=== PATIENT | female | born 1970 | race Caucasian/White ===

== ENCOUNTER 2025-04-03 09:01 | Emergency (ER) | payer MEDICARE, BC ==
[2025-04-03] MEDS ORDERED: Naloxone 0.4 MG/ML SDV IVPUSH PRN (09:21)
[2025-04-03 09:31] LABS: BASOPHILS PERCENT AUTO 0.2 % (0.0-1.0); EOSINOPHILS ABSOLUTE AUTO 0.2 K/mm3 (0.0-0.4); EOSINOPHILS PERCENT AUTO 1.8 % (0.0-6.0); HEMATOCRIT 35.7 % (37.0-47.0); HEMOGLOBIN 12.2 gm/dl (12.0-16.0); IMMATURE GRAN ABSOLUTE AUTO 0.05 K/mm3 (0.00-0.05); IMMATURE GRAN PERCENT AUTO 0.5 % (0.0-0.4); LYMPHOCYTES PERCENT AUTO 10.6 % (24.0-44.0); MEAN CORPUSCULAR HEMOGLOBIN 30.5 pg (28.0-32.0); MEAN CORPUSCULAR HGB CONC 34.2 g/dl (32.0-36.0); MEAN CORPUSCULAR VOLUME 89.3 fl (83.0-99.0); MEAN PLATELET VOLUME 8.6 fl (9.4-12.3); MONOCYTES ABSOLUTE AUTO 1.1 K/mm3 (0.0-0.8); MONOCYTES PERCENT AUTO 11.3 % (0.0-8.0); NEUTROPHILS ABSOLUTE AUTO 7.3 K/mm3 (1.8-7.7); NEUTROPHILS PERCENT AUTO 75.6 % (41.0-71.0); PLATELET COUNT,PLT 306 K/mm3 (150-400); WHITE BLOOD CELL COUNT,WBC 9.59 K/mm3 (3.9-11.3)
[2025-04-03] MEDS: Sodium Chloride 0.9% 1,000 ML IV SCH (09:31)
[2025-04-03] MEDS: Ondansetron 4 MG/2 ML SDV IVPUSH ONE ×2 (09:31→09:32)
[2025-04-03] MEDS: HYDROmorphone 1 MG/ML Syringe IVPUSH ONE (09:32)
[2025-04-03 09:48] LABS: APPEARANCE,URINE CLEAR (Clear); BILIRUBIN,URINE NEGATIVE (Negative); COLOR,URINE YELLOW (Yellow); GLUCOSE,URINE NEGATIVE (Negative); KETONES,URINE 1+ (Negative); LEUKOCYTE ESTERASE,URINE NEGATIVE (Negative); NITRITE,URINE NEGATIVE (Negative); OCCULT BLOOD,URINE TRACE-INTACT (Negative); PH,URINE 8.5 (5.0-8.0); PROTEIN,URINE NEGATIVE (Negative); UROBILINOGEN,URINE 0.2 (0.2-1.0)
[2025-04-03 09:53] LABS: A/G RATIO 1.4 (1-2); ALBUMIN 4.5 g/dl (3.4-5.0); ANION GAP 19.5 (5-15); BILIRUBIN TOTAL 0.3 mg/dL (0.2-1.0); CALCIUM 9.9 mg/dL (8.5-10.1); CREATININE 0.9 mg/dL (0.55-1.02); EST CRCL DRUG DOSING (CG) 54.29 mL/min; MAGNESIUM 1.5 mg/dL (1.8-2.4); POTASSIUM,K 3.5 mEq/L (3.5-5.1); PROTEIN TOTAL,TP 7.8 g/dl (6.4-8.2)
[2025-04-03 09:56] LABS: AMORPHOUS SEDIMENT,URINE FEW /hpf (NOT SEEN); BACTERIA,URINE FEW /hpf (FEW); EPITHELIAL CELLS,URINE 0-5 /hpf (0-5); MUCUS,URINE RARE /hpf (FEW); RBC,URINE 0-5 /hpf (0-5); WBC,URINE 0-5 /hpf (0-5)
[2025-04-03] MEDS: Iopamidol 612 MG/ML 100 ML Bottle IVPUSH ONE (09:56)
[2025-04-03 09:58] LABS: BARBITURATE SCREEN,URINE NEGATIVE (CUTOFF=200); BENZODIAZEPINES SCREEN,URINE NEGATIVE (CUTOFF=150); BUPRENORPHINE SCREEN,URINE NEGATIVE (CUTOFF=10); METHADONE SCREEN, URINE NEGATIVE (CUTOFF=200); METHAMPHETAMINES SCREEN, URINE NEGATIVE (CUTOFF=500); OXYCODONE SCREEN,URINE NEGATIVE (CUT0FF=100); THC SCREEN,URINE 20 NG/ML PRESUMPTIVE POSITIVE (CUTOFF=50)
[2025-04-03] MEDS: Sodium Chloride 0.9% 10 ML Syringe FLUSH ONE (09:58)
[2025-04-03 09:59] LABS: AMPHETAMINES SCREEN, URINE NEGATIVE (CUTOFF=500)
[2025-04-03] MEDS: droPERidol 2.5 MG/ML SDV IV STA (10:32)
[2025-04-03] MEDS ORDERED: Sodium Chloride 0.9% 1,000 ML IV SCH (11:15)
[2025-04-03 14:21] VITALS: BP 105/55; PULSE 65
== END 2025-04-03 14:21 | disposition home or self-care (01) ==
LOC: JD.ED 09:01
DX: K59.00 Constipation, unspecified (principal); K56.7 Ileus, unspecified; Z79.899 Other long term (current) drug therapy; M54.50 Low back pain, unspecified
CPT/HCPCS: 36415; 74177; 80053; 80306; 81001; 82550; 83605; 83690; 83735; 85025; 93005; 96361; 96374; 96375; 99284; J1171; J1790; J2405; J7030; Q9967